=== PATIENT | male | born 1995 | race Two or more races ===

== ENCOUNTER 2019-02-08 22:38 | Emergency (ER) | payer SELFPAY ==
[~2019-02-08] VITALS: Ht 188 cm; Wt 179.6 kg
--- NOTE | 2019-02-08 22:57 | NUR ---
Dr. Saucedo at bedside for MSE.
[2019-02-08] MEDS ORDERED: HYDROMORPHONE 1 MG/1 ML DISP.SYRIN IM ONE (23:00)
[2019-02-08] MEDS ORDERED: ONDANSETRON 4 MG/2 ML VIAL IM ONE (23:00)
[2019-02-08] MEDS ORDERED: ONDANSETRON 4 MG/2 ML VIAL ONE (23:08)
[2019-02-08] MEDS ORDERED: HYDROMORPHONE 2 MG/1 ML DISP.SYRIN ONE (23:08)
--- NOTE | 2019-02-08 23:20 | NUR ---
Pt out of ER for CT.
--- NOTE | 2019-02-08 23:35 | NUR ---
Pt back to ER from CT.
--- NOTE | 2019-02-08 23:46 | NUR ---
Patient discharged to home in stable conditon. Written and verbal after care instructions given. Patient verbalizes understanding of instructions. Pt ambulated out of ER with steady gait, no acute signs of distress, VSS, all belongings taken.
[2019-02-08 23:47] VITALS: BP 135/82
== END 2019-02-08 23:48 | disposition home or self-care (01) ==
LOC: ER 22:43
DX: G43.909 Migraine, unspecified, not intractable, without status migrainosus (principal)
CPT/HCPCS: 70450; 96372 ×2; 99284; J1170; J2405; A4663

== ENCOUNTER 2019-02-11 18:21 | Inpatient (IN) | payer MEDICAID ==
[~2019-02-11] VITALS: Ht 188 cm; Wt 177.4 kg
[2019-02-11] MEDS ORDERED: OXYC-133 PO (18:34)
[2019-02-11] MEDS ORDERED: IV NORMAL SALINE 1000 ML BAG IV ONE (19:00)
[2019-02-11] MEDS ORDERED: MORPHINE SULFATE 2 MG/1 ML DISP.SYRIN IV ONE (19:00)
[2019-02-11] MEDS ORDERED: METOCLOPRAMIDE HCL 10 MG/2 ML VIAL ONE (19:09)
[2019-02-11] MEDS ORDERED: MORPHINE SULFATE 4 MG/1 ML DISP.SYRIN ONE (19:09)
[2019-02-11] MEDS ORDERED: METOCLOPRAMIDE HCL 10 MG/2 ML VIAL IV ONE (19:15)
[2019-02-11 19:22] LABS: HEMATOCRIT 49.9 % (40-50); MEAN CORPUSCULAR HEMOGLOBIN 31.1 UUG (27.0-31.0); MEAN CORPUSCULAR HGB CONC 34 g/dL (32.0-37.0); MEAN CORPUSCULAR VOLUME 91.1 FL (82.0-92.0); PLATELET COUNT (AUTO) 189 K/UL (150-450); RED BLOOD CELL COUNT(AUTO) 5.48 MIL/UL (4.7-6.1); WHITE BLOOD COUNT (AUTO) 8.6 K/UL (4.0-11.2)
[2019-02-11 19:23] LABS: BASOPHILS % (AUTO) 0.5 % (0.0-2.0); EOSINOPHILS # (AUTO) 0.2 K/uL (0.0-0.7); EOSINOPHILS % (AUTO) 2.5 % (0.0-7.0); LYMPHOCYTES # (AUTO) 3.2 K/UL (0.8-4.8); LYMPHOCYTES % (AUTO) 36.8 % (20.5-51.5); MONOCYTES # (AUTO) 0.6 K/UL (0.1-1.30); MONOCYTES % (AUTO) 6.8 % (0.0-11.0); NEUTROPHILS # (AUTO) 4.6 K/UL (1.8-8.9); NEUTROPHILS % (AUTO) 53.4 % (38.5-71.5)
[2019-02-11 19:29] LABS: POTASSIUM 3.8 mmol/L (3.5-5.1)
[2019-02-11 19:30] LABS: BILIRUBIN,DIRECT 0.1 mg/dL (0.0-0.2); BILIRUBIN,TOTAL 0.7 mg/dL (0.1-1.0); CREATININE 0.9 mg/dL (0.6-1.3); TOTAL PROTEIN, SERUM 7.7 g/dL (6.4-8.2)
[2019-02-11] MEDS ORDERED: IV NS 1000 ML 1,000 ML IV PRN (21:47)
[2019-02-11 21:52] VITALS: BP 158/112
[2019-02-11] MEDS ORDERED: ONDANSETRON 4 MG/2 ML VIAL IV PRN (22:00)
[2019-02-11] MEDS ORDERED: MORPHINE SULFATE 2 MG/1 ML DISP.SYRIN IV PRN (22:00)
[2019-02-11] MEDS ORDERED: Z GUARD REMEDY PASTE 57 GM TUBE TOP PRN (22:00)
[2019-02-11] MEDS ORDERED: HYDROCODONE/APAP 5-325MG TABLET PO PRN (22:00)
[2019-02-11] MEDS ORDERED: MAGNESIUM HYDROXIDE 30 ML LIQUID UDC PO PRN (22:00)
[2019-02-11] MEDS ORDERED: ACETAMINOPHEN 325 MG TABLET PO PRN (22:00)
[2019-02-11] MEDS ORDERED: IV NORMAL SALINE 250 ML IV ONE (23:07)
[2019-02-11] MEDS ORDERED: IOHEXOL 350 100 ML INFUS..BTL ONE (23:07)
[2019-02-11] MEDS ORDERED: SWABABLE VALVE TRANSFER SET EA MC ONE (23:07)
[2019-02-11 23:55] LABS: *BILIRUBIN,URIN NEGATIVE (NEGATIVE); *BLOOD, URINE NEGATIVE (NEGATIVE); *CLARITY,URINE CLEAR (CLEAR); *COLOR,URINE YELLOW (YELLOW); *KETONES,URINE NEGATIVE (NEGATIVE); *UROBILINOGEN,URINE 0.2 E.U./dl (NORMAL); LEUKOCYTE ESTERASE ,URINE NEGATIVE (NEGATIVE); NITRITE, URINE NEGATIVE (NEGATIVE); PH,URINE 5.5 (5.0-8.0); UGLUCOSE NEGATIVE (NEGATIVE)
[2019-02-12 00:10] VITALS: BP 148/102
[2019-02-12 00:12] LABS: *AMPHETAMINE, URINE NEGATIVE (NEGATIVE); *BARBITURATE, URINE NEGATIVE (NEGATIVE); *CANNABINOID, URINE NEGATIVE (NEGATIVE); *COCCAINE, URINE NEGATIVE (NEGATIVE)
[2019-02-12 00:13] LABS: *OPIATE, URINE POSITIVE (NEGATIVE); *PHENCYCLIDINE SCREEN,URINE NEGATIVE (NEGATIVE)
[2019-02-12 04:15] VITALS: BP 130/77
[2019-02-12 06:50] LABS: WHITE BLOOD COUNT (AUTO) 7.8 K/uL (3.6-10.2)
[2019-02-12 06:51] LABS: BASOPHILS % (AUTO) 0.3 % (0.0-2.0); EOSINOPHILS % (AUTO) 2.3 % (0.0-7.0); HEMATOCRIT 44.8 % (36.7-47.1); LYMPHOCYTES # (AUTO) 2.6 K/uL (20.0-40.0); LYMPHOCYTES % (AUTO) 33.8 % (20.5-51.5); MEAN CORPUSCULAR HEMOGLOBIN 30.6 uug (23.8-33.4); MEAN CORPUSCULAR HGB CONC 34 g/dL (32.5-36.3); MEAN CORPUSCULAR VOLUME 91.2 fL (73.0-96.2); MONOCYTES % (AUTO) 8.2 % (0.0-11.0); NEUTROPHILS # (AUTO) 4.3 K/uL (1.8-8.9); NEUTROPHILS % (AUTO) 55.4 % (38.5-71.5); PLATELET COUNT (AUTO) 157 K/uL (152-348); RED BLOOD CELL COUNT(AUTO) 4.92 MIL/uL (4.06-5.63)
[2019-02-12 06:52] LABS: EOSINOPHILS # (AUTO) 0.2 K/uL (0.0-0.7); MONOCYTES # (AUTO) 0.6 K/uL (2.0-10.0)
[2019-02-12 07:31] VITALS: BP 110/65
[2019-02-12 07:32] LABS: CREATININE 0.9 mg/dL (0.6-1.3)
[2019-02-12 07:33] LABS: POTASSIUM 3.8 mmol/L (3.5-5.1)
[2019-02-12 07:43] LABS: MAGNESIUM 1.9 mg/dL (1.8-2.4); PHOSPHOROUS 4.2 mg/dL (2.5-4.9)
[2019-02-12 08:04] LABS: THYROID STIMULATING HORMONE 6.186 mIU/mL (0.358-3.740)
[2019-02-12 11:23] VITALS: BP 143/88
[2019-02-12 16:00] VITALS: BP 146/97
[2019-02-12 19:55] VITALS: BP 126/73
[2019-02-13 00:29] VITALS: BP 132/81
[2019-02-13 05:03] VITALS: BP 109/63
[2019-02-13 07:31] VITALS: BP 131/78
[2019-02-13 09:57] LABS: HEMATOCRIT 49.8 % (40-50); HEMOGLOBIN 16.6 G/DL (14.0-18.0); RED BLOOD CELL COUNT(AUTO) 5.48 MIL/UL (4.7-6.1); WHITE BLOOD COUNT (AUTO) 8.6 K/UL (4.0-11.2)
[2019-02-13 09:59] LABS: MEAN CORPUSCULAR HEMOGLOBIN 30.4 UUG (27.0-31.0); MEAN CORPUSCULAR HGB CONC 33 g/dL (32.0-37.0); MEAN CORPUSCULAR VOLUME 90.9 FL (82.0-92.0)
[2019-02-13 10:00] LABS: BASOPHILS % (AUTO) 0.4 % (0.0-2.0); EOSINOPHILS # (AUTO) 0.2 K/uL (0.0-0.7); EOSINOPHILS % (AUTO) 1.8 % (0.0-7.0); LYMPHOCYTES # (AUTO) 3.3 K/UL (0.8-4.8); LYMPHOCYTES % (AUTO) 38.4 % (20.5-51.5); MONOCYTES # (AUTO) 0.5 K/UL (0.1-1.30); MONOCYTES % (AUTO) 6.2 % (0.0-11.0); NEUTROPHILS # (AUTO) 4.6 K/UL (1.8-8.9); NEUTROPHILS % (AUTO) 53.2 % (38.5-71.5); PLATELET COUNT (AUTO) 185 K/UL (150-450)
[2019-02-13 10:14] LABS: POTASSIUM 3.9 mmol/L (3.5-5.1)
[2019-02-13 10:15] LABS: CREATININE 0.8 mg/dL (0.6-1.3)
[2019-02-13 12:03] VITALS: BP 135/75
[2019-02-13 15:29] VITALS: BP 138/73
== END 2019-02-13 18:03 | disposition home or self-care (01) | DRG 54 ==
LOC: ER 18:21 → MEDSURG3 21:20 → TELE-TD3 22:20 → TELE3 02-13 08:55
PROVIDERS: ADMIT Nurse Practitioner Acute Care; ATTEND Nurse Practitioner Acute Care
DX: G44.53 Primary thunderclap headache (principal); E66.01 Morbid (severe) obesity due to excess calories; G44.009 Cluster headache syndrome, unspecified, not intractable; Z68.43 Body mass index [BMI] 50.0-59.9, adult; F41.9 Anxiety disorder, unspecified; Z83.3 Family history of diabetes mellitus; Z91.19 Patient's noncompliance with other medical treatment and regimen
CPT/HCPCS: 36415; 70030-TC; 70450; 70496; 71045; 80307; 83735; 84100; 84443; 85025; 93005; 93307; A4663; G0378; J2270; J2765; J7030; J7050; Q9967

== ENCOUNTER 2019-05-02 13:16 | Emergency (ER) | payer SELFPAY ==
[~2019-05-02] VITALS: Ht 188 cm; Wt 136.1 kg
[2019-05-02] MEDS ORDERED: KETOROLAC TROMETHAMINE 60 MG INJ IM ONE ×2 (13:35→13:45)
--- NOTE | 2019-05-02 14:32 | NUR ---
Patient discharged to home in stable conditon. Written and verbal after care instructions given. Patient verbalizes understanding of instructions.pt walks in steady gait. pt pain down to toleralable level.
[2019-05-02 14:34] VITALS: BP 109/81
== END 2019-05-02 14:35 | disposition home or self-care (01) ==
LOC: ER 13:16
DX: M54.5 Low back pain (principal); F10.10 Alcohol abuse, uncomplicated; E66.01 Morbid (severe) obesity due to excess calories
CPT/HCPCS: 72110; 96372; 99283; J1885; A4663

== ENCOUNTER 2019-08-11 01:26 | Inpatient (IN) | payer MEDICAID, SELFPAY ==
[~2019-08-11] VITALS: Ht 188 cm; Wt 176.9 kg
[~2019-08-11 01:26] MED LIST: OXYC-133 PO
--- NOTE | 2019-08-11 01:50 | NUR ---
PT PRESENTED TO ER C/O SOB AND COUGH. PT STATES HES BEEN TESTED FOR COVID 19 AND HIS RESULTS WERE POSITIVE. PT PLACED ON MONITOR. V/S STABLE. PT A/OX3 ,SPEAKS IN COMPLETE SENTENCES. NO NEURO DEFICIT NOTED. NO CHEST PAIN.PT HAS SOB, COUGH.PT HAS NO GI/ SYMPTOMS. PT IN BED SIDE RAILS UPX2, FALL PRECAUTIONS IMPLEMENTED.
[2019-08-11 02:10] LABS: ABG BASE EXCESS -2.9 mmol/L; ABG HCO3 21.3 mmol/L; ABG PCO2 36.4 mmHg (35.0-45.0); ABG PH 7.386 (7.350-7.450); ABG PO2 86.6 mmHg (75.0-100.0); ABG SITE RIGHT BRACHIAL; ABG TOTAL HEMOGLOBIN 18.8 G/dL (13.5-18.0); COHb 0.3 % (0.5-1.5); MetHb 0.4 % (0.0-1.5); VENT MODE room air
[2019-08-11] MEDS ORDERED: ONDANSETRON ODT 4 MG TAB.RAPDIS ONE (02:19)
[2019-08-11] MEDS ORDERED: ONDANSETRON ODT 4 MG TAB.RAPDIS SL ONE (02:30)
--- NOTE | 2019-08-11 02:45 | NUR ---
SERVICES DELIVERY DRIVER IN ROOM FOR CHEST XRAY.
[2019-08-11 03:03] LABS: CREATININE 1.1 mg/dL (0.6-1.3); POTASSIUM 3.7 mmol/L (3.5-5.1)
[2019-08-11 03:05] LABS: BASOPHILS % (AUTO) 0.2 % (0.0-2.0); EOSINOPHILS % (AUTO) 0.4 % (0.0-7.0); HEMATOCRIT 50.7 % (36.7-47.1); HEMOGLOBIN 17.5 g/dL (12.5-16.3); LYMPHOCYTES # (AUTO) 1.6 K/uL (20.0-40.0); LYMPHOCYTES % (AUTO) 33.3 % (20.5-51.5); MEAN CORPUSCULAR HEMOGLOBIN 30.5 uug (23.8-33.4); MEAN CORPUSCULAR HGB CONC 35 g/dL (32.5-36.3); MEAN CORPUSCULAR VOLUME 88.6 fL (73.0-96.2); MONOCYTES # (AUTO) 0.5 K/uL (2.0-10.0); MONOCYTES % (AUTO) 11.1 % (0.0-11.0); NEUTROPHILS # (AUTO) 2.6 K/uL (1.8-8.9); PLATELET COUNT (AUTO) 118 K/uL (152-348); RED BLOOD CELL COUNT(AUTO) 5.72 MIL/uL (4.06-5.63); WHITE BLOOD COUNT (AUTO) 4.8 K/uL (3.6-10.2)
[2019-08-11 03:22] LABS: BILIRUBIN,TOTAL 0.8 mg/dL (0.2-1.0); TOTAL PROTEIN, SERUM 7.7 g/dL (6.4-8.2)
[2019-08-11] MEDS ORDERED: AZITHROMYCIN IV 500 MG in IV DEXTROSE 5% 250 ML IV ONE (03:30)
[2019-08-11] MEDS: CEFTRIAXONE 1 G in IV DEXTROSE 5% 50 ML IV ONE ×2 (03:30→03:47)
[2019-08-11] MEDS ORDERED: AZITHROMYCIN 500MG/ D5W 250ML IVPB **ER PYXIS ONLY IV ONE (03:37)
[2019-08-11] MEDS ORDERED: CEFTRIAXONE /D5W 50ML IVPB **ER PYXIS IV ONE (03:38)
--- NOTE | 2019-08-11 04:12 | NUR ---
DR Chambers spoke with Dr Tobias certified indoor environmentalist for [facility] panel regarding inpatient admission.
[2019-08-11] MEDS ORDERED: IV NORMAL SALINE 500 ML IV ONE (04:15)
--- NOTE | 2019-08-11 04:34 | NUR ---
CALLED FOR BED ASSIGNMENT FOR TELE BED ON [facility] FLOOR. SPOKE TO JERROD . SHE WILL CALL BACK.
--- NOTE | 2019-08-11 05:40 | NUR ---
SPOKE WITH JERROD . ROOM ASSIGNED 220.
--- NOTE | 2019-08-11 06:54 | NUR ---
GAVE REPORT TO CLYDE YOST .
--- NOTE | 2019-08-11 08:00 | NUR ---
pt transfered to [facility] following hospital guidelines for covid-19. pt deneis any nausea, pain or sob at this time. Addendum: 08/11/19 at 0831 by MATEO recieved pt on ra sat 97%.
[2019-08-11 08:30] VITALS: BP 144/80
--- NOTE | 2019-08-11 08:30 | NUR ---
Admitted a 24yr old male pt for COVID-19 at 0830. Pt. A/OX4 verbally responsive and able to make needs know. Hx and initial assessment completed. No skin condition, skin intact. Pt. denies SOB, on RA and tolerating well. No CP at this time. Placed pt. on tele, NSR. No discomfort or pain. IV access on LH 22g. Place on isolation precaution for COVID-19 per protocol. Pt oriented to unit and staff. All pt. needs attended and met. Safety measures in place. Call light and all frequently used items within pt. reach. Will continue to monitor accordingly. Addendum: 08/11/19 at 1123 by WOLFGANG HIRSCH RN Dr. Salter aware of pt. admission. Ordered regular diet. Order noted and carried out accordingly.
[2019-08-11 12:00] VITALS: BP 124/71
[2019-08-11] MEDS ORDERED: ONDANSETRON 4 MG/2 ML VIAL IV PRN (14:15)
[2019-08-11] MEDS ORDERED: ACETAMINOPHEN 325 MG TABLET PO PRN (14:15)
[2019-08-11] MEDS ORDERED: HYDROCODONE/APAP 5-325MG TABLET PO PRN (14:15)
[2019-08-11] MEDS: HYDROXYCHLOROQUINE SULFATE 200 MG TABLET PO SCH ×2 (15:20→20:52)
[2019-08-11 16:00] VITALS: BP 129/76
--- NOTE | 2019-08-11 18:07 | NUR ---
EOS Note: No significant acute changes during this shift. No changes in LOC. Denies SOB and tolerating RA. Pt. seen and assessed by Dr. Lopes. NSR on monitor. All due medications given and tolerated well with no ASE. No new skin condition. Kept on Iso precaution for COVID-19. All pt. needs attended and met promptly. Safety measures in place. Call light and all frequently used items within pt. reach.
[2019-08-11 20:00] VITALS: BP 130/84
--- NOTE | 2019-08-11 20:00 | NUR ---
Received patient awake and alert. Patient shows no signs or symptoms of distress at this time. Vital signs stable. O2 saturation 95% on RA. NSR on tele monitor. Reports received positive COVID result from [facility]. Awaiting test results of COVID that was completed at [facility]. Bed set to lowest position. Call light within reach. . Will continue to monitor patient.
[2019-08-11] MEDS: DOCUSATE SODIUM 100 MG CAPSULE PO SCH ×2 (20:52→21:00)
[2019-08-11] MEDS ORDERED: DOCUSATE SODIUM 250 MG CAPSULE PO SCH (21:00)
[2019-08-11 23:58] VITALS: BP 120/76
[2019-08-12 04:00] VITALS: BP 140/85
[2019-08-12 05:37] LABS: BILIRUBIN,TOTAL 0.5 mg/dL (0.2-1.0); CREATININE 0.9 mg/dL (0.6-1.3); POTASSIUM 3.8 mmol/L (3.5-5.1); TOTAL PROTEIN, SERUM 6.8 g/dL (6.4-8.2)
[2019-08-12 05:41] LABS: BASOPHILS % (AUTO) 0.3 % (0.0-2.0); EOSINOPHILS # (AUTO) 0.1 K/uL (0.0-0.7); EOSINOPHILS % (AUTO) 1.4 % (0.0-7.0); HEMATOCRIT 46.3 % (36.7-47.1); HEMOGLOBIN 15.9 g/dL (12.5-16.3); LYMPHOCYTES # (AUTO) 2.1 K/uL (20.0-40.0); LYMPHOCYTES % (AUTO) 47.3 % (20.5-51.5); MEAN CORPUSCULAR HEMOGLOBIN 30.5 uug (23.8-33.4); MEAN CORPUSCULAR HGB CONC 34 g/dL (32.5-36.3); MEAN CORPUSCULAR VOLUME 88.9 fL (73.0-96.2); MONOCYTES # (AUTO) 0.5 K/uL (2.0-10.0); MONOCYTES % (AUTO) 10.9 % (0.0-11.0); NEUTROPHILS # (AUTO) 1.8 K/uL (1.8-8.9); NEUTROPHILS % (AUTO) 40.1 % (38.5-71.5); PLATELET COUNT (AUTO) 109 K/uL (152-348); RED BLOOD CELL COUNT(AUTO) 5.21 MIL/uL (4.06-5.63); WHITE BLOOD COUNT (AUTO) 4.5 K/uL (3.6-10.2)
[2019-08-12 05:48] LABS: THYROID STIMULATING HORMONE 2.314 mIU/mL (0.358-3.740)
--- NOTE | 2019-08-12 06:21 | NUR ---
Patient shows no signs or symptoms of distress at this time. Vital signs stable. O2 saturation is 95% on RA. Afebrile throughout the shift. NSR on tele monitor. Will endorse patient to day shift nurse in stable condition.
[2019-08-12 08:00] VITALS: BP 128/84
--- NOTE | 2019-08-12 08:15 | NUR ---
Patient in bed, awake, alert and verbally responsive. No signs of distress noted. NO SOB. saturating 96% on Room air. No complain of Pain or discomfort. Afebrile. kept the call light within easy reach. Kept the bed in lowest position. Will continue to monitor.
[2019-08-12] MEDS: PANTOPRAZOLE SODIUM 40 MG TABLET.DR PO SCH (08:36)
[2019-08-12] MEDS: HYDROXYCHLOROQUINE SULFATE 200 MG TABLET PO SCH ×2 (08:37→21:38)
[2019-08-12 16:00] VITALS: BP 145/91
--- NOTE | 2019-08-12 18:03 | NUR ---
Received a positive covid 19 result, Dr. Salter made aware.
--- NOTE | 2019-08-12 18:11 | NUR ---
Patient in bed, awake and verbally responsive. No signs of distress noted. afebrile. No complian of Pain or discomfort. Patient resulted positive for covid 19. Dr. aguilar made aware. Kept clean and comfortable. kept the call light within easy reach. Will endorse to Oncoming Nurse.
[2019-08-12 20:41] VITALS: BP 139/93
[2019-08-12] MEDS: DOCUSATE SODIUM 100 MG CAPSULE PO SCH (21:00)
[2019-08-13 00:40] VITALS: BP 120/74
[2019-08-13 05:57] VITALS: BP 105/59
[2019-08-13 08:00] VITALS: BP 137/92
--- NOTE | 2019-08-13 08:30 | NUR ---
Received patient in bed, awake and verbally responsive. No signs of distress noted. Saturating 96% on Room Air. Afebrile. No complain of Pain or discomfort. kept the call light within easy reach. Kept clean and comfortable. Will continue to monitor.
[2019-08-13] MEDS: HYDROXYCHLOROQUINE SULFATE 200 MG TABLET PO SCH ×2 (09:02→20:16)
[2019-08-13] MEDS: PANTOPRAZOLE SODIUM 40 MG TABLET.DR PO SCH (09:02)
[2019-08-13 11:30] VITALS: BP 130/82
[2019-08-13 14:00] VITALS: BP 131/80
--- NOTE | 2019-08-13 18:42 | NUR ---
Patient in bed, awake, alert and verbally responsive. No signs of distress noted. No SOB. saturating 96% on Room Air, Afebrile. No complain of Pain or discomfort. All needs attended. Kept the call light within easy reach. Will endorse to Oncoming Nurse.
[2019-08-13 20:07] VITALS: BP 148/90
[2019-08-13] MEDS: DOCUSATE SODIUM 100 MG CAPSULE PO SCH (20:16)
[2019-08-14 05:05] VITALS: BP 108/69
[2019-08-14 06:49] LABS: BASOPHILS % (AUTO) 0.2 % (0.0-2.0); EOSINOPHILS # (AUTO) 0.1 K/uL (0.0-0.7); EOSINOPHILS % (AUTO) 2.1 % (0.0-7.0); HEMATOCRIT 47.2 % (36.7-47.1); LYMPHOCYTES # (AUTO) 1.9 K/uL (20.0-40.0); LYMPHOCYTES % (AUTO) 37.2 % (20.5-51.5); MEAN CORPUSCULAR HEMOGLOBIN 30.2 uug (23.8-33.4); MEAN CORPUSCULAR HGB CONC 34 g/dL (32.5-36.3); MONOCYTES # (AUTO) 0.5 K/uL (2.0-10.0); MONOCYTES % (AUTO) 9.2 % (0.0-11.0); NEUTROPHILS # (AUTO) 2.6 K/uL (1.8-8.9); NEUTROPHILS % (AUTO) 51.3 % (38.5-71.5); PLATELET COUNT (AUTO) 150 K/uL (152-348); WHITE BLOOD COUNT (AUTO) 5.1 K/uL (3.6-10.2)
[2019-08-14 07:18] LABS: CREATININE 1.1 mg/dL (0.6-1.3); MAGNESIUM 2.1 mg/dL (1.8-2.4); PHOSPHOROUS 3.8 mg/dL (2.5-4.9); POTASSIUM 4.2 mmol/L (3.5-5.1)
[2019-08-14] MEDS: PANTOPRAZOLE SODIUM 40 MG TABLET.DR PO SCH (08:37)
[2019-08-14] MEDS: HYDROXYCHLOROQUINE SULFATE 200 MG TABLET PO SCH ×2 (08:37→20:12)
[2019-08-14 12:09] VITALS: BP 128/72
[2019-08-14 16:44] VITALS: BP 119/55
[2019-08-14 20:10] VITALS: BP 118/59
[2019-08-14] MEDS: DOCUSATE SODIUM 100 MG CAPSULE PO SCH (20:13)
[2019-08-14 22:10] VITALS: BP 113/60
[2019-08-15 00:10] VITALS: BP 113/60
[2019-08-15 04:12] VITALS: BP 122/81
[2019-08-15] MEDS: PANTOPRAZOLE SODIUM 40 MG TABLET.DR PO SCH (08:38)
[2019-08-15] MEDS: HYDROXYCHLOROQUINE SULFATE 200 MG TABLET PO SCH ×2 (08:38→21:38)
--- NOTE | 2019-08-15 09:00 | NUR ---
RECEIVED PATIENT AWAKE ALERT AND ORIENTED AMBULATORY TO AND FROM THE BATHROOM DENIES PAIN OR DISCOMFORTS AT THIS TIME.PATIENT REMAINS ON COVID ISOLATION AT THIS TIME DUE MEDICATIONS GIVEN AND TOLERATED WELL CALL LIGHTS AND PERSONAL BELONGINGS ARE WITHIN EASY REACH MADE COMFORTABLE WILL CONTINUE TO OBSERVE.
--- NOTE | 2019-08-15 10:01 | NUR ---
DR LIN HERE SEEN PATIENT WITH NO NEW ORDERS AT THIS TIME
[2019-08-15 13:59] VITALS: BP 109/65
--- NOTE | 2019-08-15 14:07 | NUR ---
RESTING IN BED DENIES DISCOMFORTS REMAIN ON COVID ISOLATION AND PRECAUTION MADE COMFORTABLE WILL CONTINUE TO OBSERVE
[2019-08-15 15:44] VITALS: BP 136/80
--- NOTE | 2019-08-15 18:00 | NUR ---
RESTING QTC LEVEL IS 394 CONTINUE ON PLAQUINIL ORDERED WITH NO ADVERSE EFFECTS AT THIS TIME NO RESPIRATORY DISTRESS AT THIS TIME.
[2019-08-15 19:30] VITALS: BP 128/79
[2019-08-15] MEDS: DOCUSATE SODIUM 100 MG CAPSULE PO SCH (21:38)
[2019-08-16 04:00] VITALS: BP 117/66
--- NOTE | 2019-08-16 07:02 | NUR ---
RECEIVED PATIENT RESTING IN BED ON HIS PHONE. AXOX4, NO SIGNS OF DISTRESS, NO SOB. VITALS STABLE, NO FEVER. DENIES ANY PAIN OR DISCOMFORT, REMAINING ON COVID IODATION. ALL NEEDS ATTENDED TO, MADE COMFORTABLE. WILL CONTINUE TO OBSERVE. PLAN FOR POSSIBLE DISCHARGE. WILL ENDORSE REPORT TO NEXT SHIFT.
[2019-08-16] MEDS: PANTOPRAZOLE SODIUM 40 MG TABLET.DR PO SCH (09:07)
[2019-08-16 09:16] VITALS: BP 130/86
--- NOTE | 2019-08-16 11:00 | NUR ---
ORDER TO DISCHARGE PATIENT HOME TODAY RECEIVED AND NOTED PATIENT STATED THAT HE WILL BE ABLE TO LEAVE AFTER LUNCH PATIENT WAS INSTRUCTED TO QUARENTINE SELF FOR 14 DAYS AND TO FOLLOW UP WITH HIS PRIMARY DOCTOR WITHIN ONE WEEK AND TO GO TO THE CLOSEST ED IF FEVER OR WORSENING CONDITION AND HE EXPRESSED UNDERSTANDING.
--- NOTE | 2019-08-16 13:21 | NUR ---
PATIENT DISCHARGED ASSITED TO THE PARKING LOT AREA WHERE HIS CAR IS LOCATED IN SATISFACTORY CONDITION WITH ALL OF HIS PERSONAL BELONGINGS.
== END 2019-08-16 13:20 | disposition home or self-care (01) | DRG 999 ==
LOC: ER 01:31 → TELE 07:51 → MED 08-13 16:05
PROVIDERS: ADMIT Internal Medicine; ATTEND Nurse Practitioner Acute Care
DX: U07.1 COVID-19 (principal); J12.89 Other viral pneumonia; Z68.43 Body mass index [BMI] 50.0-59.9, adult; Z83.3 Family history of diabetes mellitus; E66.01 Morbid (severe) obesity due to excess calories; D69.6 Thrombocytopenia, unspecified; G89.29 Other chronic pain; F41.9 Anxiety disorder, unspecified; R73.9 Hyperglycemia, unspecified; R53.1 Weakness; R05 Cough; R06.02 Shortness of breath
CPT/HCPCS: 36415; 36600; 70030-TC; 71045; 83605; 83615; 83735; 84100; 84443; 85025; 85730; 86140; 87040; 87400; 93005; A4663; G0378; J0456; J0696; J7040; Q0162; U0003-CS

== ENCOUNTER 2020-04-14 19:47 | Emergency (ER) | payer SELFPAY ==
[~2020-04-14] VITALS: Ht 188 cm; Wt 181.4 kg
--- NOTE | 2020-04-14 20:17 | NUR ---
Dr. Morales at bedside for MSE.
--- NOTE | 2020-04-14 20:47 | NUR ---
Patient unable to provide urine at this time.
[2020-04-14 20:50] LABS: BASOPHILS % (AUTO) 0.4 % (0.0-2.0); EOSINOPHILS # (AUTO) 0.1 K/uL (0.0-0.7); EOSINOPHILS % (AUTO) 1.6 % (0.0-7.0); HEMATOCRIT 47.4 % (36.7-47.1); HEMOGLOBIN 16.3 g/dL (12.5-16.3); LYMPHOCYTES # (AUTO) 2.3 K/uL (20.0-40.0); LYMPHOCYTES % (AUTO) 30.4 % (20.5-51.5); MEAN CORPUSCULAR HEMOGLOBIN 30.8 uug (23.8-33.4); MEAN CORPUSCULAR HGB CONC 35 g/dL (32.5-36.3); MEAN CORPUSCULAR VOLUME 89.3 fL (73.0-96.2); MONOCYTES # (AUTO) 0.6 K/uL (2.0-10.0); MONOCYTES % (AUTO) 8.1 % (0.0-11.0); NEUTROPHILS # (AUTO) 4.4 K/uL (1.8-8.9); NEUTROPHILS % (AUTO) 59.5 % (38.5-71.5); PLATELET COUNT (AUTO) 181 K/uL (152-348); WHITE BLOOD COUNT (AUTO) 7.5 K/uL (3.6-10.2)
[2020-04-14 20:53] LABS: CREATININE 0.9 mg/dL (0.6-1.3); POTASSIUM 3.9 mmol/L (3.5-5.1)
[2020-04-14 20:59] LABS: BILIRUBIN,DIRECT 0.2 mg/dL (0.0-0.2); BILIRUBIN,TOTAL 1.2 mg/dL (0.2-1.0); TOTAL PROTEIN, SERUM 7.5 g/dL (6.4-8.2)
[2020-04-14] MEDS ORDERED: IOHEXOL 300MG/ML 100 ML INFUS..BTL ONE (21:40)
[2020-04-14] MEDS ORDERED: IV NORMAL SALINE 250 ML IV ONE (21:40)
[2020-04-14] MEDS ORDERED: SWABABLE VALVE TRANSFER SET EA MC ONE (21:40)
--- NOTE | 2020-04-14 21:42 | NUR ---
Pt out of ER for CTA.
--- NOTE | 2020-04-14 22:10 | NUR ---
Pt back to ER from CT.
[2020-04-14 22:29] LABS: *BILIRUBIN,URIN NEGATIVE (NEGATIVE); *BLOOD, URINE NEGATIVE (NEGATIVE); *CLARITY,URINE CLEAR (CLEAR); *COLOR,URINE YELLOW (YELLOW); *KETONES,URINE NEGATIVE (NEGATIVE); LEUKOCYTE ESTERASE ,URINE NEGATIVE (NEGATIVE); NITRITE, URINE NEGATIVE (NEGATIVE); UGLUCOSE NEGATIVE (NEGATIVE)
[2020-04-15 00:14] VITALS: BP 156/100
--- NOTE | 2020-04-15 00:14 | NUR ---
Patient discharged to home in stable condition. Written and verbal after care instructions given. Patient verbalizes understanding of instructions. Stressed follow up or return to ER for worsening s/s. Patient out of ER with steady gait, no acute signs of distress, VSS, all belongings taken, IV site discontinued, provided with copies of lab and CT results.
== END 2020-04-15 00:15 | disposition home or self-care (01) ==
LOC: ER 19:51
DX: R10.32 Left lower quadrant pain (principal); E66.01 Morbid (severe) obesity due to excess calories; Z68.43 Body mass index [BMI] 50.0-59.9, adult; I10 Essential (primary) hypertension; Z86.69 Personal history of other diseases of the nervous system and sense organs
CPT/HCPCS: 36415; 74177; 80048; 80076; 81003; 83690; 85025; 85730; 99285; Q9967; A4663; J7050

== ENCOUNTER 2021-02-28 13:43 | Emergency (ER) | payer MEDICAID ==
[~2021-02-28] VITALS: Ht 188 cm; Wt 166.9 kg
[2021-02-28] MEDS: IV NORMAL SALINE 500 ML BAG IV ONE (14:21)
[2021-02-28] MEDS: KETOROLAC TROMETHAMINE 15 MG INJ IVP ONE (14:26)
[2021-02-28] MEDS: METOCLOPRAMIDE HCL 10 MG/2 ML VIAL IV ONE (14:26)
[2021-02-28] MEDS: ACETAMINOPHEN 325 MG TABLET PO ONE (14:26)
[2021-02-28] MEDS ORDERED: KETOROLAC TROMETHAMINE 15 MG INJ ONE (14:30)
[2021-02-28] MEDS ORDERED: ACETAMINOPHEN 325 MG TABLET ONE (14:30)
[2021-02-28] MEDS ORDERED: METOCLOPRAMIDE HCL 10 MG/2 ML VIAL ONE (14:31)
[2021-02-28 14:32] LABS: HEMATOCRIT 46.7 % (36.7-47.1); MEAN CORPUSCULAR HEMOGLOBIN 31.9 uug (23.8-33.4); MEAN CORPUSCULAR VOLUME 92.2 fL (73.0-96.2); PLATELET COUNT (AUTO) 150 K/uL (152-348)
[2021-02-28 14:34] LABS: CREATININE 0.9 mg/dL (0.6-1.3); POTASSIUM 3.7 mmol/L (3.5-5.1)
[2021-02-28 14:40] LABS: BILIRUBIN,TOTAL 1.1 mg/dL (0.2-1.0); TOTAL PROTEIN, SERUM 7.2 g/dL (6.4-8.2)
[2021-02-28 15:23] VITALS: BP 131/69
--- NOTE | 2021-02-28 15:23 | NUR ---
Patient discharged to home in stable condition. Written and verbal after care instructions given. Patient verbalizes understanding of instructions. Stressed follow up or return to ER for worsening s/s.pt says feels better and wants to be d/xavi.
== END 2021-02-28 15:38 | disposition home or self-care (01) ==
LOC: ER 13:43
DX: R51.9 Headache, unspecified (principal); E66.01 Morbid (severe) obesity due to excess calories; Z68.42 Body mass index [BMI] 45.0-49.9, adult; Z98.84 Bariatric surgery status; R74.01 Elevation of levels of liver transaminase levels
CPT/HCPCS: 36415; 80053; 85025; 93005; 96361; 96374; 96375; 99284; J1885; J2765; A4663; J7030

== ENCOUNTER 2023-09-07 19:44 | Inpatient (IN) | payer MEDICAID ==
[~2023-09-07] VITALS: Ht 182.9 cm; Wt 105.4 kg
[2023-09-07] MEDS: IV NORMAL SALINE 1000 ML BAG IV ONE (20:50)
[2023-09-07 21:00] LABS: BASOPHILS % (AUTO) 0.6 % (0.0-2.0); EOSINOPHILS % (AUTO) 0.5 % (0.0-7.0); HEMATOCRIT 42.7 % (36.7-47.1); HEMOGLOBIN 14.2 g/dL (12.5-16.3); LYMPHOCYTES # (AUTO) 1.3 K/uL (0.8-4.8); LYMPHOCYTES % (AUTO) 15.9 % (20.5-51.5); MEAN CORPUSCULAR HGB CONC 33 g/dL (32.5-36.3); MEAN CORPUSCULAR VOLUME 81.4 fL (73.0-96.2); MONOCYTES # (AUTO) 0.8 K/uL (0.1-1.30); MONOCYTES % (AUTO) 10.1 % (0.0-11.0); NEUTROPHILS # (AUTO) 5.8 K/uL (1.8-8.9); NEUTROPHILS % (AUTO) 72.9 % (38.5-71.5); PLATELET COUNT (AUTO) 212 K/uL (152-348); RED BLOOD CELL COUNT(AUTO) 5.25 MIL/uL (4.06-5.63); RED CELL DISTRIBUTION WIDTH 16.4 % (12.1-16.2)
[2023-09-07 21:01] LABS: DIFFERENTIAL COMMENT 1
[2023-09-07] MEDS ORDERED: PANTOPRAZOLE SODIUM 40 MG VIAL ONE (21:08)
[2023-09-07] MEDS ORDERED: ONDANSETRON 4 MG/2 ML VIAL ONE (21:08)
[2023-09-07] MEDS ORDERED: HYDROMORPHONE 1 MG/1 ML DISP.SYRIN ONE (21:09)
[2023-09-07 21:11] LABS: CALCIUM 9.4 mg/dL (8.5-10.1); CARBON DIOXIDE 29 mmol/L (21-32); CHLORIDE 106 mmol/L (98-107); CREATININE 0.8 mg/dL (0.6-1.3); GLUCOSE 112 mg/dL (74-106); POTASSIUM 3.4 mmol/L (3.5-5.1); SODIUM SERUM 145 mmol/L (136-145); UREA NITROGEN, BLOOD 17 mg/dL (7-18)
[2023-09-07] MEDS ORDERED: OCTREOTIDE ACETATE 50 MCG/1 ML ML ONE (21:11)
[2023-09-07] MEDS: OCTREOTIDE ACETATE 50 MCG/1 ML ML IV ONE (21:15)
[2023-09-07] MEDS: ONDANSETRON 4 MG/2 ML VIAL IV ONE (21:15)
[2023-09-07] MEDS: HYDROMORPHONE 1 MG/1 ML DISP.SYRIN IV ONE (21:15)
[2023-09-07 21:20] LABS: ALANINE AMINOTRANSFERASE 24 U/L (16-63); ALKALINE PHOSPHATASE 172 U/L (50-136); ASPARTATE AMINOTRANSFERASE 21 U/L (15-37); BILIRUBIN,DIRECT 0.3 mg/dL (0.0-0.2); BILIRUBIN,TOTAL 1.6 mg/dL (0.2-1.0); LIPASE 34 U/L (16-77); TOTAL PROTEIN, SERUM 7.2 g/dL (6.4-8.2)
[2023-09-07] MEDS: PANTOPRAZOLE SODIUM IV 80 MG in IV DEXTROSE 5% 100 ML IV ONE (21:20)
[2023-09-07] MEDS ORDERED: SWABABLE VALVE TRANSFER SET EA MC ONE (21:49)
[2023-09-07] MEDS ORDERED: IOHEXOL 350 100 ML INFUS..BTL ONE (21:49)
[2023-09-07] MEDS ORDERED: IV NORMAL SALINE 250 ML IV ONE (21:49)
[2023-09-07] MEDS ORDERED: ACETAMINOPHEN 325 MG TABLET PO PRN (23:15)
[2023-09-07] MEDS ORDERED: hydrALAZINE HCL 20 MG/1 ML VIAL IV PRN (23:15)
[2023-09-07] MEDS: MORPHINE SULFATE 2 MG/1 ML DISP.SYRIN IVP PRN (23:50)
[2023-09-08] MEDS: IV NS 1000 ML 1,000 ML IV SCH (00:01)
[2023-09-08 01:20] VITALS: BP 133/82; TEMP 98.1; O2SAT 96
[2023-09-08 04:15] VITALS: BP 118/75; TEMP 97.9; O2SAT 98
[2023-09-08 07:12] LABS: BASOPHILS % (AUTO) 0.4 % (0.0-2.0); EOSINOPHILS # (AUTO) 0.1 K/uL (0.0-0.7); EOSINOPHILS % (AUTO) 2.1 % (0.0-7.0); HEMOGLOBIN 12.4 g/dL (12.5-16.3); LYMPHOCYTES # (AUTO) 1.3 K/uL (0.8-4.8); LYMPHOCYTES % (AUTO) 28.6 % (20.5-51.5); MEAN CORPUSCULAR HEMOGLOBIN 26.6 uug (23.8-33.4); MEAN CORPUSCULAR HGB CONC 33 g/dL (32.5-36.3); MEAN CORPUSCULAR VOLUME 81.5 fL (73.0-96.2); MONOCYTES # (AUTO) 0.4 K/uL (0.1-1.30); MONOCYTES % (AUTO) 9.2 % (0.0-11.0); NEUTROPHILS # (AUTO) 2.7 K/uL (1.8-8.9); NEUTROPHILS % (AUTO) 59.7 % (38.5-71.5); PLATELET COUNT (AUTO) 169 K/uL (152-348); RED BLOOD CELL COUNT(AUTO) 4.66 MIL/uL (4.06-5.63); RED CELL DISTRIBUTION WIDTH 16.1 % (12.1-16.2); WHITE BLOOD COUNT (AUTO) 4.6 K/uL (3.6-10.2)
[2023-09-08 07:25] LABS: ALBUMIN 3.3 g/dL (3.4-5.0); BILIRUBIN,TOTAL 2.1 mg/dL (0.2-1.0); CALCIUM 8.7 mg/dL (8.5-10.1); CREATININE 0.8 mg/dL (0.6-1.3); PHOSPHOROUS 4.5 mg/dL (2.5-4.9); POTASSIUM 3.6 mmol/L (3.5-5.1); TOTAL PROTEIN, SERUM 6.2 g/dL (6.4-8.2)
[2023-09-08 07:26] LABS: DIFFERENTIAL COMMENT 1
[2023-09-08 07:41] VITALS: BP 108/64; TEMP 98.9; O2SAT 95
[2023-09-08] MEDS: DOCUSATE SODIUM 100 MG CAPSULE PO SCH (08:40)
[2023-09-08] MEDS: PANTOPRAZOLE SODIUM 40 MG VIAL IV SCH (08:44)
[2023-09-08] MEDS: MORPHINE SULFATE 4 MG/1 ML DISP.SYRIN IV PRN (09:48)
[2023-09-08 12:28] VITALS: BP 126/86; TEMP 98.8; O2SAT 95
[2023-09-08] MEDS ORDERED: OMEP40CA21 PO (13:26)
[2023-09-08] MEDS: IV D5/ 0.9% NACL 1,000 ML IV PRN (15:01)
[2023-09-08 16:39] VITALS: BP 127/80; TEMP 98.8; O2SAT 95
[2023-09-08 17:19] LABS: BASOPHILS % (AUTO) 0.4 % (0.0-2.0); DIFFERENTIAL COMMENT 1; EOSINOPHILS # (AUTO) 0.1 K/uL (0.0-0.7); EOSINOPHILS % (AUTO) 2.6 % (0.0-7.0); HEMOGLOBIN 12.3 g/dL (12.5-16.3); LYMPHOCYTES # (AUTO) 1.2 K/uL (0.8-4.8); LYMPHOCYTES % (AUTO) 25.4 % (20.5-51.5); MEAN CORPUSCULAR HEMOGLOBIN 25.7 uug (23.8-33.4); MEAN CORPUSCULAR HGB CONC 31 g/dL (32.5-36.3); MEAN CORPUSCULAR VOLUME 81.8 fL (73.0-96.2); MONOCYTES # (AUTO) 0.4 K/uL (0.1-1.30); MONOCYTES % (AUTO) 8.3 % (0.0-11.0); NEUTROPHILS % (AUTO) 63.3 % (38.5-71.5); PLATELET COUNT (AUTO) 174 K/uL (152-348); RED BLOOD CELL COUNT(AUTO) 4.77 MIL/uL (4.06-5.63); RED CELL DISTRIBUTION WIDTH 16.7 % (12.1-16.2); WHITE BLOOD COUNT (AUTO) 4.7 K/uL (3.6-10.2)
[2023-09-08] MEDS: ONDANSETRON 4 MG/2 ML VIAL IV PRN (21:49)
[2023-09-08 22:24] VITALS: BP 116/66; TEMP 98.2; O2SAT 98
[2023-09-09 06:00] VITALS: BP 120/85; TEMP 97.8; O2SAT 100
[2023-09-09 07:29] LABS: BASOPHILS % (AUTO) 0.5 % (0.0-2.0); EOSINOPHILS # (AUTO) 0.1 K/uL (0.0-0.7); EOSINOPHILS % (AUTO) 3.1 % (0.0-7.0); HEMATOCRIT 37.7 % (36.7-47.1); HEMOGLOBIN 12.2 g/dL (12.5-16.3); LYMPHOCYTES # (AUTO) 1.2 K/uL (0.8-4.8); MEAN CORPUSCULAR HEMOGLOBIN 26.7 uug (23.8-33.4); MEAN CORPUSCULAR HGB CONC 32 g/dL (32.5-36.3); MEAN CORPUSCULAR VOLUME 82.3 fL (73.0-96.2); MONOCYTES # (AUTO) 0.2 K/uL (0.1-1.30); MONOCYTES % (AUTO) 7.7 % (0.0-11.0); NEUTROPHILS # (AUTO) 1.6 K/uL (1.8-8.9); NEUTROPHILS % (AUTO) 51.7 % (38.5-71.5); PLATELET COUNT (AUTO) 151 K/uL (152-348); RED BLOOD CELL COUNT(AUTO) 4.57 MIL/uL (4.06-5.63); RED CELL DISTRIBUTION WIDTH 15.9 % (12.1-16.2); WHITE BLOOD COUNT (AUTO) 3.2 K/uL (3.6-10.2)
[2023-09-09 07:38] LABS: DIFFERENTIAL COMMENT 1
[2023-09-09 12:06] VITALS: BP 114/70; TEMP 98.5; O2SAT 98
[2023-09-09] MEDS ORDERED: TRAM100T23 PO (15:08)
[2023-09-09] MEDS ORDERED: SUCR1TAB31 PO (15:10)
[2023-09-09 16:07] VITALS: BP 106/75; TEMP 99.1; O2SAT 99
== END 2023-09-09 17:15 | disposition home or self-care (01) | DRG 241 ==
LOC: ER 19:45 → TELE3 23:00 → MEDSURG3 09-08 09:54
PROVIDERS: ADMIT Internal Medicine; ATTEND Internal Medicine
DX: K27.4 Chronic or unspecified peptic ulcer, site unspecified, with hemorrhage (principal); D69.6 Thrombocytopenia, unspecified; K76.0 Fatty (change of) liver, not elsewhere classified; E66.01 Morbid (severe) obesity due to excess calories; Z68.31 Body mass index [BMI] 31.0-31.9, adult; Z87.11 Personal history of peptic ulcer disease; E87.6 Hypokalemia; Z98.84 Bariatric surgery status; Z88.0 Allergy status to penicillin; Z83.3 Family history of diabetes mellitus; G89.29 Other chronic pain; M54.9 Dorsalgia, unspecified; F41.9 Anxiety disorder, unspecified; Z91.199 Patient's noncompliance with other medical treatment and regimen due to unspecified reason
CPT/HCPCS: 36415; 71045; 83550; 83690; 84100; 84484; 85025; 85730; 86850; 86900; 86901; 93005; A4606; A4663; C9113; G0378; J1170; J2270; J2354; J2405; J7040; Q9967

== ENCOUNTER 2023-10-31 18:31 | Emergency (ER) | payer BC, MEDICAID ==
[~2023-10-31] VITALS: Ht 182.9 cm; Wt 104.3 kg
[~2023-10-31 18:31] MED LIST changes: +OMEP40CA21 PO; -OXYC-133 PO; +SUCR1TAB31 PO; +TRAM100T23 PO
[2023-10-31] MEDS ORDERED: KETOROLAC TROMETHAMINE 30 MG INJ ONE (19:25)
[2023-10-31] MEDS: KETOROLAC TROMETHAMINE 30 MG INJ IVP ONE (19:27)
[2023-10-31 19:29] LABS: BASOPHILS % (AUTO) 0.5 % (0.0-2.0); EOSINOPHILS % (AUTO) 0.7 % (0.0-7.0); HEMATOCRIT 40.9 % (36.7-47.1); HEMOGLOBIN 12.9 g/dL (12.5-16.3); LYMPHOCYTES # (AUTO) 1.4 K/uL (0.8-4.8); LYMPHOCYTES % (AUTO) 24.5 % (20.5-51.5); MEAN CORPUSCULAR HEMOGLOBIN 26.3 uug (23.8-33.4); MEAN CORPUSCULAR HGB CONC 32 g/dL (32.5-36.3); MEAN CORPUSCULAR VOLUME 83.2 fL (73.0-96.2); MONOCYTES # (AUTO) 0.8 K/uL (0.1-1.30); MONOCYTES % (AUTO) 13.3 % (0.0-11.0); NEUTROPHILS # (AUTO) 3.4 K/uL (1.8-8.9); PLATELET COUNT (AUTO) 189 K/uL (152-348); RED BLOOD CELL COUNT(AUTO) 4.91 MIL/uL (4.06-5.63); RED CELL DISTRIBUTION WIDTH 16.9 % (12.1-16.2); WHITE BLOOD COUNT (AUTO) 5.6 K/uL (3.6-10.2)
[2023-10-31 19:36] LABS: DIFFERENTIAL COMMENT 1
[2023-10-31 19:40] LABS: CALCIUM 8.9 mg/dL (8.5-10.1); CARBON DIOXIDE 30 mmol/L (21-32); CHLORIDE 103 mmol/L (98-107); CREATININE 0.8 mg/dL (0.6-1.3); ETHANOL < 3 MG/DL (0-10); GLUCOSE 98 mg/dL (74-106); POTASSIUM 3.7 mmol/L (3.5-5.1); SODIUM SERUM 142 mmol/L (136-145); UREA NITROGEN, BLOOD 13 mg/dL (7-18)
[2023-10-31 19:45] LABS: ALANINE AMINOTRANSFERASE 38 U/L (16-63); ALBUMIN 3.6 g/dL (3.4-5.0); ALKALINE PHOSPHATASE 131 U/L (50-136); ASPARTATE AMINOTRANSFERASE 22 U/L (15-37); BILIRUBIN,TOTAL 1.2 mg/dL (0.2-1.0); LIPASE 33 U/L (16-77); TOTAL PROTEIN, SERUM 6.6 g/dL (6.4-8.2)
[2023-10-31] MEDS ORDERED: ONDANSETRON 4 MG/2 ML VIAL ONE ×2 (20:28→20:29)
[2023-10-31] MEDS ORDERED: ONDA4TAB5 PO (20:29)
[2023-10-31] MEDS ORDERED: PANT40TA2 PO (20:29)
[2023-10-31] MEDS: ONDANSETRON 4 MG/2 ML VIAL IV ONE ×2 (20:35→21:09)
[2023-10-31 21:11] VITALS: BP 146/74; TEMP 98.8; O2SAT 98
== END 2023-10-31 21:06 | disposition home or self-care (01) ==
LOC: ER 18:32
DX: R10.84 Generalized abdominal pain (principal); G43.909 Migraine, unspecified, not intractable, without status migrainosus; E66.01 Morbid (severe) obesity due to excess calories; Z79.899 Other long term (current) drug therapy; Z68.31 Body mass index [BMI] 31.0-31.9, adult; Z60.2 Problems related to living alone; Z88.1 Allergy status to other antibiotic agents
CPT/HCPCS: 80053; 83690; 85025; 36415; 74176; 99285; 96374; 96375; 83605; 80320; J1885; J2405 ×2; A4606; A4663; G0480

== ENCOUNTER 2024-09-14 00:45 | Emergency (ER) | payer BC, OTHER ==
[~2024-09-14 00:45] MED LIST changes: +ONDA4TAB5 PO; +PANT40TA2 PO
== END 2024-09-14 01:38 | disposition left against medical advice (07) ==
LOC: ER 00:58
DX: R10.9 Unspecified abdominal pain (principal); Z53.21 Procedure and treatment not carried out due to patient leaving prior to being seen by health care provider

== ENCOUNTER 2024-11-18 21:57 | Emergency (ER) | payer OTHER ==
[~2024-11-18] VITALS: Ht 182.9 cm; Wt 104.3 kg
[2024-11-18] MEDS: PANTOPRAZOLE SODIUM IV 40 MG in IV DEXTROSE 5% 100 ML IV ONE (22:15)
[2024-11-18 22:59] LABS: *BILIRUBIN,URIN 1+ (NEGATIVE); *BLOOD, URINE NEGATIVE (NEGATIVE); *CLARITY,URINE CLEAR (CLEAR); *COLOR,URINE YELLOW (YELLOW); *KETONES,URINE 1+ (NEGATIVE); *PROTEIN,URINE 1+ (NEGATIVE); *UROBILINOGEN,URINE 2.0 E.U./dl (NORMAL); LEUKOCYTE ESTERASE ,URINE NEGATIVE (NEGATIVE); NITRITE, URINE NEGATIVE (NEGATIVE); UGLUCOSE NEGATIVE (NEGATIVE)
[2024-11-18 23:00] LABS: PLATELET COUNT (AUTO) 165 K/uL (152-348); RED BLOOD CELL COUNT(AUTO) 5.02 MIL/uL (4.06-5.63); RED CELL DISTRIBUTION WIDTH 15.9 % (12.1-16.2); WHITE BLOOD COUNT (AUTO) 5.1 K/uL (3.6-10.2)
[2024-11-18] MEDS: IV NS 1000 ML 1,000 ML IV ONE (23:04)
[2024-11-18 23:10] LABS: CREATININE 0.6 mg/dL (0.6-1.3); SODIUM SERUM 141 mmol/L (136-145); UREA NITROGEN, BLOOD 15 mg/dL (7-18)
[2024-11-18 23:12] LABS: ETHANOL < 3 MG/DL (0-10)
[2024-11-18] MEDS ORDERED: KETOROLAC TROMETHAMINE 30 MG INJ ONE (23:12)
[2024-11-18 23:16] LABS: *AMPHETAMINE, URINE NEGATIVE (NEGATIVE); *BARBITURATE, URINE NEGATIVE (NEGATIVE); *BENZODIAZEPINE, URINE NEGATIVE (NEGATIVE); *CANNABINOID, URINE NEGATIVE (NEGATIVE); *COCCAINE, URINE NEGATIVE (NEGATIVE); *OPIATE, URINE NEGATIVE (NEGATIVE); *PHENCYCLIDINE SCREEN,URINE NEGATIVE (NEGATIVE); FENTANYL, URINE NEGATIVE (NEGATIVE)
[2024-11-18] MEDS: KETOROLAC TROMETHAMINE 30 MG INJ IVP ONE (23:17)
[2024-11-18 23:21] LABS: ASPARTATE AMINOTRANSFERASE 22 U/L (15-37); TOTAL PROTEIN, SERUM 7.0 g/dL (6.4-8.2)
[2024-11-18 23:35] LABS: SQUAMOUS EPITHELIAL CELL,UR FEW /HPF (NONE SEEN)
[2024-11-18] MEDS ORDERED: PANTOPRAZOLE SODIUM 40 MG VIAL ONE (23:35)
[2024-11-18] MEDS ORDERED: OMEP20TA20 PO (23:48)
[2024-11-18] MEDS ORDERED: ONDANSETRON 4 MG/2 ML VIAL ONE (23:54)
[2024-11-18] MEDS ORDERED: MORPHINE SULFATE 2 MG/1 ML DISP.SYRIN ONE (23:55)
[2024-11-19] MEDS: MORPHINE SULFATE 2 MG/1 ML DISP.SYRIN IV ONE ×2 (00:01→00:25)
[2024-11-19] MEDS: ONDANSETRON 4 MG/2 ML VIAL IV ONE ×2 (00:01→00:26)
[2024-11-19 01:50] VITALS: BP 125/88
[2024-11-19 02:30] VITALS: BP 120/87; O2SAT 1
== END 2024-11-19 02:21 | disposition home or self-care (01) ==
LOC: ER 22:05
DX: R10.9 Unspecified abdominal pain (principal); E66.01 Morbid (severe) obesity due to excess calories; G43.909 Migraine, unspecified, not intractable, without status migrainosus; F41.9 Anxiety disorder, unspecified; Z87.19 Personal history of other diseases of the digestive system; Z87.39 Personal history of other diseases of the musculoskeletal system and connective tissue; Z79.899 Other long term (current) drug therapy; Z86.16 Personal history of COVID-19; Z88.0 Allergy status to penicillin
CPT/HCPCS: 80053; 81001; 83690; 85025; 87086; 36415; 74176; 99285; 96361; 96365; 96375; 80320; 80307; J1885; J2405; J2470 ×2; J2270; J7040; G0480